=== PATIENT | female | born 1985 | race Caucasian/White ===

== ENCOUNTER 2020-08-09 17:27 | Emergency (ER) | payer OTHER ==
[~2020-08-09] VITALS: Ht 157.5 cm; Wt 77.1 kg
[2020-08-09] MEDS ORDERED: DICLOFENAC SODI75 MG PO (18:38)
== END 2020-08-09 19:04 | disposition home or self-care (01) ==
LOC: ER 17:27
DX: S80.12XA Contusion of left lower leg, initial encounter (principal); W17.89XA Other fall from one level to another, initial encounter; Y93.11 Activity, swimming; Y92.59 Other trade areas as the place of occurrence of the external cause